=== PATIENT | female | born 1975 | race Caucasian/White ===

== ENCOUNTER → 2018-06-06 | Outpatient (CLI) | payer OTHER | LOC: M RAD 08:55 | DX: Z12.31 Encounter for screening mammogram for malignant neoplasm of breast (principal) | CPT/HCPCS: 77067 ==

== ENCOUNTER → 2019-02-13 | Outpatient (CLI) | payer OTHER ==
--- NOTE | 2019-02-13 14:59 | REP ---
DIGITAL DIAGNOSTIC UNILATERAL RIGHT BREAST MAMMOGRAPHY WITH CAD, 3D TOMOGRAPHY, AND FOCUSED RIGHT BREAST SONOGRAPHY: HISTORY: Upper outer quadrant lump times 1 month. 5 mm in size nontender. Comparison is made with prior mammography most recent of which is from June 06, 2018. June 17, 2016 and January 22, 2015 studies are also reviewed. MAMMOGRAPHIC FINDINGS: A skin marker is affixed to the skin in the right breast. Routine views of the right breast are augmented by magnified focal spot compression images and 3D tomographic images. There is a small area of spiculation visible on magnified spot radiographs in the upper outer quadrant. There are some adjacent punctate microcalcifications. There are microcalcifications regionally in the upper outer quadrant which appeared dispersed. These are essentially unchanged but the area of spiculation is new. Parenchyma is again seen to be heterogeneously dense in a pattern which may inhibit the sensitivity of mammography. No other mammographic abnormality of the right breast. SONOGRAPHIC FINDINGS: The right breast is scanned from 9-o'clock position to the 12-o'clock position through the upper outer quadrant. At 10-o'clock there is a 1.2 x 1.2 x 0.6 cm hypoechoic spiculated appearing mass with acoustic shadowing. This is taller than wide and is considered sonographically suspicious. This is felt to correspond with the area of spiculation seen mammographically. It is located 3.6 cm from the nipple. Heterogeneous fibroglandular background echotexture is seen. IMPRESSION: BIRADS 4: BI-RADS/ACR category 4 mammogram. Suspicious Abnormality - biopsy should be considered. BIRADS category 4 suspicious right breast findings. There is a suspicious area of spiculation in the upper outer quadrant mammographically. This corresponds to a 1.2 cm hypoechoic irregular mass sonographically at 10-o'clock position. Biopsy is recommended. Ultrasound-guided needle biopsy is recommended with marker clip placement and post marker clip placement mammography. This mammogram was interpreted with the aid of an FDA-approved computer-aided detection system. The patient states she had a clinical breast exam in January 2019. The patient letter being requested is M4 dense. This patient's estimated [facility] lifetime risk assessment for the breast cancer is 11.9 %. Electronically Signed by Scooter Troncoso MD 02/13/2019 04:22 P
== END ==
LOC: M RAD 12:27
PROVIDERS: ATTEND Family Medicine
DX: N63.11 Unspecified lump in the right breast, upper outer quadrant (principal)

== ENCOUNTER → 2019-04-26 | Outpatient (CLI) | payer OTHER ==
[~2019-04-26] MED LIST: IBUP200C33 PO; LORA-674 PO; MULTCAP PO
--- NOTE | 2019-04-26 23:24 | RADONC ---
RADIATION ONCOLOGY NEW PATIENT CONSULTATION DATE: 04/26/2019 CHART NUMBER: [id number] DIAGNOSIS: She has a diagnosis of right-sided breast cancer. STAGE: [id number] infiltrating ductal carcinoma, group stage I. The tumor was noted to be ER/MO positive, HER2/jo ann, not overly expressed. Oncotype DX score 11. REFERRING PHYSICIANS: Hoa Castillo and Jamel Alvarado. ECOG PERFORMANCE STATUS: 0 ICD-10 code: C50-50.411 HISTORY OF PRESENT ILLNESS: The patient is a 43-year-old female who apparently noticed for about a month a lump in the upper outer quadrant of the right breast. A mammogram was obtained, and a lesion was noted at the 10 o'clock and 9 o'clock position of the right breast, suspicious for malignancy. The mammography and sonography were performed on 02/13/2019. The lesion at the 10 o'clock position measured 1.2 x 1.2 x 0.6 cm. A biopsy was performed of the two areas on 03/27/2019 followed by a lumpectomy. The lumpectomy was performed on 03/27/2019. A grade 2 infiltrating ductal carcinoma was the final histology of the area at the 10 o'clock position with atypical cells seen also at the 9 o'clock position. The sentinel lymph node biopsy was performed on 03/27/2019 which was negative. The patient had clear margins, and Dr. Castillo saw the patient, who recommended an Oncotype DX evaluation. The Oncotype DX was obtained with a score of 11. The advantages of chemotherapy over tamoxifen or hormonal therapy were only 1%. She has an appointment to see Dr. Castillo again on May 09, 2019 to go over the results and to determine whether or not she will actually require chemotherapy. However, as stated, her indications are that she might not have a significant benefit from systemic chemotherapy. The patient healed well from her lumpectomy and sentinel lymph node biopsy and comes to us today to discuss adjuvant local regional radiotherapy. In summary, her lesion measured approximately 1.6 cm in greatest dimension and was ER/MO positive, HER2/jo ann negative. As stated, the Oncotype DX score was 11 which did not strongly indicate an advantage for chemotherapy over hormonal therapy alone. PAST MEDICAL HEALTH: She has had two cardiac ablations. PAST SURGICAL HEALTH: She has had an appendectomy and a tonsillectomy. ALLERGIES: No known drug allergies. MEDICATIONS: - ibuprofen 200 mg p.r.n. - loratadine 10 mg p.r.n. - multivitamins SOCIAL HISTORY: The patient is . 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 She enjoys her work and wishes to actively continue working. Smoking History: She has never smoked. Alcohol history. Occasional. GYNECOLOGIC HISTORY: She underwent menarche at the age of 11, with her first live at the age of 26. She did use oral contraceptives for approximately 20 years but stopped at the age of 35. She is still menstruating. FAMILY HISTORY: Family history of cancer. She has an aunt on her father's side with breast cancer and apparently she has had two breast primaries. She also has a paternal grandfather who had colon cancer. REVIEW OF SYSTEMS: Respiratory: She denies coughing, dryness, hemoptysis, dyspnea, hiccups, pleuritic chest pain or wheezing. Psychiatric: Denies delusions, hallucinations, mood swings such as depression or euphoria. Neurologic: Denies disorientation, dizziness, problems with gait, headaches, insomnia, memory loss, neuropathy, paralysis, seizure activity, sensory problems or strokes. Musculoskeletal: Denies arthritis, bone pain, joint pain, muscle weakness. Integumentary: Denies alopecia, blisters, bruising, dry skin, facial burning, difficulty with nail growth, photosensitivity, pruritus, rashes, or urticaria. Hematologic/Lymphatic: Denies easy bruising or lymphadenopathy. Genitourinary: Denies dysuria, frequency, genital masses, hematuria, incontinence, nocturia, renal stones, sexual dysfunction, urgency, changes in urine color, vaginal discharge or bleeding. She also denies vaginal spotting. Gastrointestinal: Denies changes in her bowel habits, constipation, diarrhea, heartburn, dyspepsia, hematemesis, hematochezia, hemorrhoids, melena, GI bleeding, nausea, pain, cramping, early satiety or vomiting. HEENT: Denies ear pain, epistaxis, esophagitis, hearing loss, mouth dryness, oral bleeding, otitis, sinusitis, sputum production, stomatitis, alteration of taste or tinnitus. Endocrine: Denies a history of diabetes, hot flashes, menstrual irregularities or thyroid disease. Constitutional: Denies a decrease in appetite, fatigue, fever, lethargy, malaise, night sweats, rigors or chills, or recent weight loss. Cardiovascular: Denies any current major issues, although she has had two cardiac ablations presumably for rhythmic abnormalities. Denies chest pain, dyspnea, edema, orthopnea. Breasts: She had a previous mammography as stated in the history and physical with her partial mastectomy on 03/27/2019 with sentinel lymph node biopsy. EXAMINATION FINDINGS: O2 saturation 99% on room air, diastolic 83, systolic 125, respirations 18, pulse 64, temperature 98.2, weight 164, height 67 inches. HEENT: Normocephalic. EOMs intact. PERRLA. Fundi benign. Lymphatics: No palpable peripheral lymphadenopathy is noted in the cervical, supraclavicular, axillary or inguinal lymph node chains. Lungs are clear to auscultation and to percussion. Heart: Regular without murmurs. Abdomen: Without evidence of hepatomegaly, masses, deep abdominal tenderness. Extremities: Without cyanosis, clubbing or edema. Neurologic: Examination grossly physiologic and nonfocal. Breasts: Bilaterally symmetric with healed incisions from her partial mastectomy and lymph node sampling. No abnormal masses are palpable on either breast. IMPRESSION: Stage I ([id number]) infiltrating ductal carcinoma involving the right upper outer quadrant. The tumor was ER/MO positive, HER2/jo ann oncogene not overly expressed. Oncotype DX results revealed that the patient had a very low benefit from chemotherapy with her score of 11. PLAN OF RADIOTHERAPY: The patient would be an appropriate candidate for adjuvant local regional radiotherapy to the right breast. We would recommend a dose of approximately 4860 cGy to the entire breast followed by a 1200 cGy boost to the lumpectomy scar site. Prior to treatment, delivery localization will be accomplished on our CT simulator and treatment portals defined by the use of multileaf collimators. A 3D conformal technique of be employed for treatment delivery. The indications, possible side effects, as well as alternatives have been explained to the patient. They include but are not necessarily limited to some fatigue, redness of the skin with possible desquamation, brittleness of the rib area, possible lung inflammation with an unlikely probability but possibility of radiation pneumonitis. The patient agrees to the above proposed treatment. Her consent was signed today, and she will return for simulation and will return to Dr. Castillo on May 09, 2019 to determine whether or not hormonal therapy is indicated versus chemotherapy. I am assuming the patient will be receiving hormonal therapy. Thank you for referring this very marlyn lady to us and allowing us the opportunity of participation in her overall management. Most Sincerely,
== END ==
LOC: M ONCR 10:22
PROVIDERS: ATTEND Radiology Radiation Oncology
DX: C50.911 Malignant neoplasm of unspecified site of right female breast (principal)

== ENCOUNTER → 2019-05-21 | Outpatient (RCR) | payer OTHER ==
[2019-05-03 11:07] LABS: HEMATOCRIT 39.4 % (36.0-47.0); HEMOGLOBIN 13.4 g/dl (12.0-15.5); LYMPH % 27.8 % (24.0-44.0); MEAN CORPUSCULAR HEMOGLOBIN 31.2 pg (27.0-33.0); MEAN CORPUSCULAR VOLUME 91.9 fl (80.0-96.0); NEUTROPHILS # 3.8 10^3/uL (1.8-7.7); NEUTROPHILS % 63.9 % (36.0-66.0); RED BLOOD COUNT 4.29 10^6/uL (4.00-5.40); WHITE BLOOD COUNT 5.9 10^3/uL (4.0-10.0)
--- NOTE | 2019-05-07 08:16 | RADONC ---
RADIATION ONCOLOGY SIMULATION NOTE DATE: 05/03/2019 CHART NUMBER: [id number] DIAGNOSIS: Right breast cancer. The patient comes today for simulation and was placed in the supine position. An immobilization device was constructed to immobilize the patient for daily accuracy during her treatments. The general outlines were wired on the breast, and the patient tolerated the immobilization device very well. 3 mm images were obtained through the chest area for contouring later and treatment planning. I was present during the entire simulation. The patient tolerated her procedure quite well with no significant untoward side effects and as soon as the images are contoured for both PTV (planned treatment volume) and for normal surrounding structures, a treatment plan will be generated. Again, the entire process was quite well tolerated, and the patient was sent home after completion.
--- NOTE | 2019-05-16 07:22 | RADONC ---
RADIATION ONCOLOGY PROGRESS NOTE DATE: 05/14/2019 CHART #: [id number] Ms. Escobar was taken to the linear accelerator today and underwent her first fraction of radiation to her right breast. Radiation was tolerated without difficulty or discomfort. REVIEW OF SYSTEMS: The patient's review of systems is noncontributory. Denies nausea, vomiting, fevers, chills, night sweats, diplopia, headaches, anxiety or depression, anorexia, weight loss, visual disturbances, chest pain, urinary or bowel difficulties, bone pain, or neurological problems. PHYSICAL EXAMINATION: The patient's skin is in excellent condition with no evidence of radiation change present. There is no moist or dry desquamation. The remainder of physical exam remains unchanged. ASSESSMENT: The patient tolerated her first fraction well and radiation will continue as scheduled.
[~2019-05-21] MED LIST changes: +SILV40CR EXT; +TAMO20TA8 PO
--- NOTE | 2019-05-22 07:24 | RADONC ---
RADIATION ONCOLOGY PROGRESS NOTE DATE: 05/21/2019 CHART #: [id number] Ms. Escobar is presently at a dose of 1080 cGy to her right breast and is tolerating treatments quite well at this point with no complaints related to her radiation therapy. She is having no skin discomfort or other problems. REVIEW OF SYSTEMS: The patient's review of systems is noncontributory. Denies nausea, vomiting, fevers, chills, night sweats, diplopia, headaches, anxiety or depression, anorexia, weight loss, visual disturbances, chest pain, urinary or bowel difficulties, bone pain, or neurological problems. PHYSICAL EXAMINATION: The patient's skin is in good condition with no evidence of radiation change present. There is no moist or dry desquamation. The remainder of her physical exam remains unchanged. Ms. Escobar is tolerating treatments quite well and radiation will continue as scheduled.
== END ==
LOC: M ONCR 05-03 10:34
PROVIDERS: ATTEND Radiology Radiation Oncology
DX: C50.411 Malignant neoplasm of upper-outer quadrant of right female breast (principal)

== ENCOUNTER → 2019-06-21 | Outpatient (RCR) | payer OTHER ==
--- NOTE | 2019-05-29 11:01 | RADONC ---
RADIATION ONCOLOGY PROGRESS NOTE DATE: 05/28/2019 CHART NUMBER: [id number] Ms. Escobar is presently at a dose of 1980 cGy to her right breast and is tolerating treatments quite well at this point with no complaints related to her radiation therapy. She is having no breast or bone pain. The patient's review of systems is noncontributory. She denies nausea, vomiting, fevers, chills, night sweats, diplopia, headaches, anxiety or depression, anorexia, weight loss, visual disturbances, chest pain, urinary or bowel difficulties, bone pain, or neurological problems. PHYSICAL EXAMINATION: The patient's skin is in good condition with no evidence of moist or dry desquamation. The remainder of her physical exam remains unchanged. Ms. Escobar is tolerating treatments quite well and radiation will continue as scheduled.
--- NOTE | 2019-06-04 13:52 | RADONC ---
RADIATION ONCOLOGY PROGRESS NOTE: DATE: 06/04/2019 CHART NUMBER: [id number] Ms. Escobar is presently at a dose of 2880 cGy to the right breast and is tolerating treatments quite well at this point with no significant difficulties related to her radiation therapy. She is having no breast or bone pain. REVIEW OF SYSTEMS: The patient's review of systems is noncontributory. She denies nausea, vomiting, fevers, chills, night sweats, diplopia, headaches, anxiety or depression, anorexia, weight loss, visual disturbances, chest pain, urinary or bowel difficulties, bone pain, or neurological problems. PHYSICAL EXAMINATION: The patient's skin is in good condition with no evidence of moist or dry desquamation. The remainder of her physical exam remains unchanged. Ms. Escobar is tolerating treatments quite well and radiation will continue as scheduled.
--- NOTE | 2019-06-12 08:39 | RADONC ---
RADIATION ONCOLOGY PROGRESS NOTE DATE: 06/11/2019 CHART NUMBER: [id number] This patient is currently undergoing radiotherapy for breast cancer, The patient has no complaints referable to her disease or to her treatments. She specifically denies any nausea, vomiting, coughing, sputum production or hemoptysis. Her energy level is such that she is able to maintain most of her day-to-day activities without any alteration of her lifestyle. She denies significant skin irritation, but she does have a mild itching erythema which is benefited by the use of Aquaphor. EXAMINATION FINDINGS: The skin within the irradiated volume shows a minimal very follicular erythema within the irradiated volume. There is no palpable peripheral lymphadenopathy noted in the cervical, supraclavicular or axillary lymph node chains. Lungs are clear. Heart regular. The remainder of the examination is unchanged. IMPRESSION: Tolerating therapy well. PLAN: Treatments to continue. MTDD
--- NOTE | 2019-06-19 06:28 | RADONC ---
RADIATION ONCOLOGY PROGRESS NOTE DATE: CHART #: [id number] Ms. Escobar is presently at a dose of 4680 cGy to her right breast and is tolerating treatments quite well at this point with no significant difficulties related to her radiation therapy other than some discomfort in the axillary region. REVIEW OF SYSTEMS: The patient's review of systems is positive for axillary discomfort but is otherwise noncontributory. Denies nausea, vomiting, fevers, chills, night sweats, diplopia, headaches, anxiety or depression, anorexia, weight loss, visual disturbances, chest pain, urinary or bowel difficulties, bone pain, or neurological problems. PHYSICAL EXAMINATION: The patient's skin is generally in good condition, although there is a small area of dry desquamation in the axillary region. There is also tanning and erythema present. The remainder of her physical exam remains unchanged. Ms. Escobar is tolerating treatments quite well and radiation will continue as scheduled. I did send in a prescription for Silvadene to her pharmacy.
== END ==
LOC: M ONCR 05-22 12:46
PROVIDERS: ATTEND Radiology Radiation Oncology
DX: C50.411 Malignant neoplasm of upper-outer quadrant of right female breast (principal)

== ENCOUNTER 2019-06-28 12:45 | Outpatient (RCR) | payer OTHER ==
--- NOTE | 2019-06-25 14:21 | RADONC ---
RADIATION ONCOLOGY FOLLOWUP NOTE: DATE: 06/25/2019 CHART NUMBER: [id number] Mrs. Escobar with a diagnosis of the right breast is currently receiving local regional adjuvant radiotherapy and she has almost completed her complete course of radiotherapy with only three more treatments to go. She has accomplished a dose of 4860 cGy to the entire breast and is currently receiving a boost dose to the lumpectomy scar site. She has no specific complaints other than skin toxicity related to her radiotherapy. REVIEW OF SYSTEMS: She denies any nausea, vomiting, coughing, sputum production or hemoptysis. Her energy level is somewhat diminished but she is still able to maintain most day-to-day activities without any alteration of her lifestyle. Skin irritation is bothersome to her. She was given a prescription for some Silvadene cream, however she felt that preparation cause her skin to even become more erythematous, therefore she discontinued it. She now only puts Aquaphor which helps ameliorate some of her discomfort. Otherwise, she denies any significant areas of desquamation and she certainly says that the pain is manageable. EXAMINATION FINDINGS: The skin within the irradiated volume shows a brisk erythematous blush without significant focal desquamation. There is no palpable peripheral lymphadenopathy. Lungs are clear. Heart: Regular without murmurs. Abdomen: Without evidence of hepatomegaly, masses, deep abdominal tenderness. Extremities: Without cyanosis, clubbing or edema. Neurologic: Examination unchanged. The remainder of the physical examination is unchanged. IMPRESSION: Tolerating therapy well. PLAN: Treatment is to continue. MTDD
--- NOTE | 2019-07-02 13:48 | RADONC ---
RADIATION ONCOLOGY TREATMENT SUMMARY DATE: 07/02/2019 CHART NUMBER: [id number] DIAGNOSIS: Right breast cancer. STAGE: IA, [id number], ER positive, LA positive, HER2 negative, Oncotype DX score 11. ECOG PERFORMANCE STATUS: 0 TREATMENT SUMMARY: Ms. Escobar is a very pleasant 44-year-old white female with the diagnosis of a stage IA, [id number] infiltrating ductal carcinoma of the right breast who presented to us status post lumpectomy and sentinel lymph node biopsy for consideration of postoperative radiation therapy for conservative breast management. We treated the patient to her right breast for a total dose of 4860 cGy delivered in 27 fractions of 180 cGy each over 36 elapsed days from 05/14/2019 through 06/19/2019. The patient's right breast was treated on a linear accelerator utilizing a 3D conformal technique with medial and lateral tangential mendez and a 6 MV photon beam. Following completion of 4860 cGy to the entire right breast, the primary site was boosted for an additional 1200 cGy delivered in six fractions of 200 cGy each over seven elapsed days from 06/21/2019 through 06/28/2019. The patient's primary site boost was treated on a linear accelerator utilizing a 16 MeV electron beam prescribed to the 90% isodose line via an en face technique. This brought the primary site to a total dose 6060 cGy delivered in 33 fractions over 43 elapsed days from 05/14/2019 through 06/28/2019. Ms. Escobar tolerated her treatments quite well and was able complete therapy as prescribed. I have scheduled the patient to see me again in 1 month for further followup. I have also scheduled the patient to see me again in 1 month for further followup. She will also continue to be seen by her other physicians as well. cc: MD Sherman Arias MD
== END 2019-07-21 ==
LOC: M ONCR 12:45
PROVIDERS: ATTEND Radiology Radiation Oncology
DX: C50.411 Malignant neoplasm of upper-outer quadrant of right female breast (principal)

== ENCOUNTER → 2019-07-24 | Outpatient (CLI) | payer OTHER ==
[2019-07-24 12:39] LABS: BASO % 0.7 % (0.0-1.0); EOS # 0.2 10^3/uL (0.0-0.5); EOS % 3.9 % (0.0-3.0); HEMATOCRIT 38.9 % (36.0-47.0); HEMOGLOBIN 12.8 g/dl (12.0-15.5); LYMPH # 0.8 10^3/uL (1.5-5.0); LYMPH % 17.4 % (24.0-44.0); MEAN CORPUSCULAR HEMOGLOBIN 30.6 pg (27.0-33.0); MEAN CORPUSCULAR HGB CONC 32.9 g/dl (32.0-36.5); MEAN CORPUSCULAR VOLUME 93.1 fl (80.0-96.0); MONO # 0.4 10^3/uL (0.0-0.8); MONO % 8.7 % (0.0-5.0); NEUTROPHILS # 3.2 10^3/uL (1.5-8.5); NEUTROPHILS % 69.1 % (36.0-66.0); PLATELET COUNT, AUTOMATED 189 10^3/uL (150-450); RED BLOOD COUNT 4.18 10^6/uL (4.00-5.40); WHITE BLOOD COUNT 4.6 10^3/uL (4.0-10.0)
[2019-07-24 12:59] LABS: ALBUMIN 3.8 GM/DL (3.2-5.2); ALT/SGPT 26 U/L (12-78); BILIRUBIN,TOTAL 0.7 MG/DL (0.2-1.0); BLOOD UREA NITROGEN 13 MG/DL (7-18); CALCIUM LEVEL 9.5 MG/DL (8.5-10.1); CARBON DIOXIDE LEVEL 27 MEQ/L (21-32); CHLORIDE LEVEL 108 MEQ/L (98-107); CHOLESTEROL LEVEL 108 MG/DL (<200); CHOLESTEROL RISK RATIO 2.037 (<5); CREATININE FOR GFR 0.73 MG/DL (0.55-1.30); FREE T4 1.02 NG/DL (0.76-1.46); GLOMERULAR FILTRATION RATE > 60.0 (>58); GLUCOSE, FASTING 84 MG/DL (70-100); HDL CHOLESTEROL 53 MG/DL (>40); LDL CHOLESTEROL 43 MG/DL (<100); NON-HDL-C 55 MG/DL; SODIUM LEVEL 141 MEQ/L (136-145); TOTAL PROTEIN 7.1 GM/DL (6.4-8.2); TRIGLYCERIDES LEVEL 61 MG/DL (<150)
== END ==
LOC: M LRY 09:18
PROVIDERS: ATTEND Physician Assistant
DX: Z13.220 Encounter for screening for lipoid disorders (principal); Z13.0 Encounter for screening for diseases of the blood and blood-forming organs and certain disorders involving the immune mechanism

== ENCOUNTER → 2019-07-25 | Outpatient (CLI) | payer OTHER ==
--- NOTE | 2019-07-25 11:47 | RADONC ---
RADIATION ONCOLOGY FOLLOWUP NOTE DATE OF SERVICE: 07/25/2019 Ms. Escobar is a 44-year-old female who carries the diagnosis of infiltrating ductal carcinoma of the right breast stage IA, [id number], ER/CA positive, HER2 negative. She completed radiation therapy on 07/02/2019. INTERVAL HISTORY She started tamoxifen, and her last period was 06/26/2019. She is experiencing hot flashes and has an appointment with the manager zone next week. SYSTEMIC REVIEW: She denies any headache, dizziness. No respiratory symptoms. No cardiovascular symptoms. No GI or symptoms. She denies any bone pain. ECOG performance status: 0. PHYSICAL EXAMINATION She is well developed, nourished.Not in apparent distress There is no palpable lymphadenopathy in the neck, axilla bilaterally. There is a minimal residual erythema in the right breast. There was tenderness over the lumpectomy scars in the right breast and also radiating laterally and then posteriorly. Abdominal examination: Is negative. There is no bony tenderness over the spine and the rib cages. There is no swelling or cyanosis of the extremities. ASSESMENT and RECOMMENDATION Ms. Escobar is a 44-year-old female who carries the diagnosis of infiltrating ductal carcinoma of the right breast stage IA, [id number], ER/CA positive, HER2 negative. She completed radiation therapy on 07/02/2019. She is doing very well without any complaints. I have discussed gynecology could followup since she is on tamoxifen, and I advised her to massage the lumpectomy scar using vitamin E cream. She was advised continuous follow up care with physicians involved and she was advised to return here in 3 months for the followup or sooner if it is needed. FIFI
== END ==
LOC: M ONCR 08:59
PROVIDERS: ATTEND Radiology Radiation Oncology
DX: C50.411 Malignant neoplasm of upper-outer quadrant of right female breast (principal)

== ENCOUNTER 2019-08-29 09:54 | Day surgery (SDC) | payer OTHER ==
[~2019-08-29] VITALS: Ht 170.2 cm; Wt 67.2 kg
[~2019-08-29 09:54] MED LIST changes: +NS 1,000 ML IV ONE
[2019-08-29] MEDS ORDERED: propofoL 200 MG/20 ML VIAL As Ordered ONE (11:21)
[2019-08-29] MEDS ORDERED: LIDOCAINE 2% INJ 100 MG/5 ML SDV (FOR ANES.) As Ordered ONE (11:21)
--- NOTE | 2019-08-29 11:48 | ROOR ---
Patient Name: Christine Escobar Procedure Date: 08/29/2019 11:12 AM Date of : 1975 Age: 44 Room: [facility] Gender: Female Note Status: Finalized Procedure: Colonoscopy Indications: Screening for colorectal malignant neoplasm Providers: Wilbur Santa DO Referring MD: Yoon CROWE DO Requesting Provider: Medicines: Propofol per Anesthesia Complications: No immediate complications. Procedure: Pre-Anesthesia Assessment: - Prior to the procedure, a History and Physical was performed, and patient medications and allergies were reviewed. The patient is competent. The risks and benefits of the procedure and the sedation options and risks were discussed with the patient. All questions were answered and informed consent was obtained. Patient identification and proposed procedure were verified by the physician, the nurse, the anesthesiologist and the er medical technician in the endoscopy suite. Mental Status Examination: alert and oriented. Airway Examination: normal oropharyngeal airway and neck mobility. Respiratory Examination: clear to auscultation. CV Examination: normal. Prophylactic Antibiotics: The patient does not require prophylactic antibiotics. Prior Anticoagulants: The patient has taken no previous anticoagulant or antiplatelet agents. ASA Grade Assessment: II - A patient with mild systemic disease. After reviewing the risks and benefits, the patient was deemed in satisfactory condition to undergo the procedure. The anesthesia plan was to use monitored anesthesia care (MAC). Immediately prior to administration of medications, the patient was re-assessed for adequacy to receive sedatives. The heart rate, respiratory rate, oxygen saturations, blood pressure, adequacy of pulmonary ventilation, and response to care were monitored throughout the procedure. The physical status of the patient was re-assessed after the procedure. The Colonoscope was introduced through the anus and advanced to the cecum, identified by appendiceal orifice and ileocecal valve. The colonoscopy was technically difficult and complex due to a tortuous colon. Successful completion of the procedure was aided by changing the patient to a supine position. The patient tolerated the procedure well. Findings: The colon (entire examined portion) was significantly tortuous. Non-bleeding internal hemorrhoids were found during retroflexion. The hemorrhoids were mild and Grade I (internal hemorrhoids that do not prolapse). The exam was otherwise without abnormality on direct and retroflexion views. Impression: - Tortuous colon. - Non-bleeding internal hemorrhoids. - The examination was otherwise normal on direct and retroflexion views. - No specimens collected. Recommendation: - Patient has a contact number available for emergencies. The signs and symptoms of potential delayed complications were discussed with the patient. Return to normal activities tomorrow. Written discharge instructions were provided to the patient. - Repeat colonoscopy in 5-10 years for screening purposes. - Return to my office PRN. Wilbur Santa DO 08/29/2019 11:48:19 AM Electronically signed by Wilbur Santa DO Number of Addenda: 0 Note Initiated On: 08/29/2019 11:12 AM Estimated Blood Loss: Estimated blood loss: none.
[2019-08-29 12:05] VITALS: BP 148/62
== END 2019-08-29 12:06 | disposition home or self-care (01) ==
LOC: M OPP 09:54
PROVIDERS: ATTEND Surgery
DX: Z12.11 Encounter for screening for malignant neoplasm of colon (principal); Z80.0 Family history of malignant neoplasm of digestive organs; K64.0 First degree hemorrhoids; Q43.8 Other specified congenital malformations of intestine; Z85.3 Personal history of malignant neoplasm of breast; Z79.899 Other long term (current) drug therapy; Z88.1 Allergy status to other antibiotic agents

== ENCOUNTER → 2019-10-24 | Outpatient (CLI) | payer OTHER ==
[~2019-10-24] MED LIST changes: -NS 1,000 ML IV ONE
--- NOTE | 2019-10-30 10:39 | RADONC ---
RADIATION ONCOLOGY FOLLOWUP NOTE DATE: 10/24/2019 CHART NUMBER: [id number] DIAGNOSIS: Right-sided breast cancer. STAGE: IA, T1c, N0, M0, grade 1, ER positive, FL positive, HER2 equivocal, Oncotype DX score 11. ECOG PERFORMANCE STATUS: 0. FOLLOWUP NOTE: Ms. 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 The patient presents today reporting that she is doing quite well with no complaints at this time related to her radiation therapy or disease. She has got no breast or bone pain. REVIEW OF SYSTEMS: The patient's review of systems is noncontributory. She denies nausea, vomiting, fevers, chills, night sweats, diplopia, headaches, anxiety or depression, anorexia, weight loss, visual disturbances, chest pain, urinary or bowel difficulties, bone pain, or neurological problems. PHYSICAL EXAMINATION: The patient is a well-developed, well-nourished, female in no acute distress. HEENT exam is normocephalic, atraumatic. Extraocular movements are intact. There is no palpable cervical, supraclavicular, infraclavicular, axillary, or inguinal lymphadenopathy present. Lungs are clear to auscultation and percussion. Heart has a regular rate and rhythm. Abdomen is benign with no hepatosplenomegaly, masses, or tenderness. Breast examination reveals no masses or discharge bilaterally. Skeletal examination reveals no tenderness to pressure or percussion of the bony skeleton. Extremities reveal no clubbing, cyanosis, or edema. Neurologic exam is grossly intact, as is the remainder of the physical examination. ASSESSMENT: The patient is clinically RODO at this time. She is being followed and managed closely by her surgeon as well as her medical oncologist and light of this I am discharging her from my followup except on an as needed basis. cc: MD Matilde Arias MD
== END ==
LOC: M ONCR 10:14
PROVIDERS: ATTEND Radiology Radiation Oncology
DX: C50.411 Malignant neoplasm of upper-outer quadrant of right female breast (principal)

== ENCOUNTER → 2020-10-30 | Outpatient (CLI) | payer OTHER ==
[~2020-10-30] MED LIST changes: +B-10TAB2 PO; +MULT-90 PO
[2020-10-30 06:48] LABS: BASO # 0.1 10^3/uL (0.0-0.2); BASO % 1.1 % (0.0-1.0); EOS # 0.3 10^3/uL (0.0-0.5); EOS % 5.8 % (0.0-3.0); HEMATOCRIT 37.9 % (36.0-47.0); HEMOGLOBIN 12.6 g/dl (12.0-15.5); LYMPH # 1.2 10^3/uL (1.5-5.0); MEAN CORPUSCULAR HEMOGLOBIN 30.6 pg (27.0-33.0); MEAN CORPUSCULAR HGB CONC 33.2 g/dl (32.0-36.5); MONO # 0.5 10^3/uL (0.0-0.8); MONO % 10.2 % (2.0-8.0); NEUTROPHILS # 2.7 10^3/uL (1.5-8.5); NEUTROPHILS % 56.7 % (36.0-66.0); PLATELET COUNT, AUTOMATED 156 10^3/uL (150-450); RED BLOOD COUNT 4.12 10^6/uL (4.00-5.40); WHITE BLOOD COUNT 4.7 10^3/uL (4.0-10.0)
[2020-10-30 07:15] LABS: ALBUMIN 3.8 GM/DL (3.2-5.2); ALT/SGPT 24 U/L (12-78); BILIRUBIN,TOTAL 0.6 MG/DL (0.2-1.0); BLOOD UREA NITROGEN 17 MG/DL (7-18); CARBON DIOXIDE LEVEL 32 MEQ/L (21-32); CHLORIDE LEVEL 107 MEQ/L (98-107); CHOLESTEROL LEVEL 131 MG/DL (<200); CHOLESTEROL RISK RATIO 1.898 (<5); CREATININE FOR GFR 0.86 MG/DL (0.55-1.30); FREE T4 0.86 NG/DL (0.76-1.46); GLOMERULAR FILTRATION RATE > 60.0 (>58); GLUCOSE, FASTING 92 MG/DL (70-100); HDL CHOLESTEROL 69 MG/DL (>40); LDL CHOLESTEROL 48 MG/DL (<100); NON-HDL-C 62 MG/DL; POTASSIUM SERUM 4.4 MEQ/L (3.5-5.1); SODIUM LEVEL 140 MEQ/L (136-145); TOTAL PROTEIN 6.8 GM/DL (6.4-8.2); TRIGLYCERIDES LEVEL 72 MG/DL (<150)
--- NOTE | 2020-10-30 08:20 | REP ---
INDICATION: PAIN IN RIGHT ELBOW- LABS FIRST COMPARISON: None. TECHNIQUE: AP and lateral views of the right elbow. FINDINGS: No acute fracture or dislocation is appreciated. Joint spaces and surrounding soft tissues appear normal. Lateral view demonstrates normal positioning to the anterior and posterior fat pads without evidence for effusion/hemarthrosis. No subcutaneous emphysema or foreign body identified. IMPRESSION: Normal age-appropriate right elbow radiographs. <Electronically signed by Toby Hurtado > 10/30/20 0845
== END ==
LOC: M LAB 06:17
PROVIDERS: ATTEND Physician Assistant
DX: M25.521 Pain in right elbow (principal)

== ENCOUNTER → 2021-05-05 | Outpatient (CLI) | payer OTHER ==
[2021-05-05 13:34] LABS: BASO % 0.8 % (0.0-1.0); EOS # 0.2 10^3/uL (0.0-0.5); EOS % 2.8 % (0.0-3.0); HEMATOCRIT 35.5 % (36.0-47.0); HEMOGLOBIN 11.7 g/dl (12.0-15.5); LYMPH # 1.5 10^3/uL (1.5-5.0); LYMPH % 27.2 % (24.0-44.0); MEAN CORPUSCULAR VOLUME 94.2 fl (80.0-96.0); MONO # 0.4 10^3/uL (0.0-0.8); MONO % 7.1 % (2.0-8.0); NEUTROPHILS # 3.3 10^3/uL (1.5-8.5); NEUTROPHILS % 61.9 % (36.0-66.0); PLATELET COUNT, AUTOMATED 199 10^3/uL (150-450); RED BLOOD COUNT 3.77 10^6/uL (4.00-5.40); WHITE BLOOD COUNT 5.3 10^3/uL (4.0-10.0)
[2021-05-05 15:37] LABS: ALBUMIN 3.5 GM/DL (3.2-5.2); ALT/SGPT 40 U/L (12-78); BILIRUBIN,TOTAL 0.5 MG/DL (0.2-1.0); BLOOD UREA NITROGEN 11 MG/DL (7-18); CARBON DIOXIDE LEVEL 27 MEQ/L (21-32); CHLORIDE LEVEL 113 MEQ/L (98-107); CREATININE FOR GFR 0.78 MG/DL (0.55-1.30); FREE T4 0.89 NG/DL (0.76-1.46); GLOMERULAR FILTRATION RATE > 60.0 (>58); GLUCOSE, FASTING 93 MG/DL (70-100); IRON (FE) 107 UG/DL (50-170); PERCENT SATURATION 24.7 % (13.2-45.0); POTASSIUM SERUM 4.3 MEQ/L (3.5-5.1); SODIUM LEVEL 145 MEQ/L (136-145); TOTAL IRON BINDING CAPACITY 433 UG/DL (250-450); TOTAL PROTEIN 6.3 GM/DL (6.4-8.2)
[2021-05-05 15:50] LABS: TOTAL 25(OH) VITAMIN D 50.3 NG/ML (30.0-100.0)
== END ==
LOC: M LAB 12:45
PROVIDERS: ATTEND Physician Assistant
DX: Z00.00 Encounter for general adult medical examination without abnormal findings (principal); R53.83 Other fatigue

== ENCOUNTER → 2022-11-16 | Outpatient (CLI) | payer OTHER ==
[~2022-11-16] MED LIST changes: +CELE10TA PO
== END ==
LOC: M PLAIMG 08:56
PROVIDERS: ATTEND Family Medicine
DX: M54.32 Sciatica, left side (principal)

== ENCOUNTER → 2022-12-30 | Outpatient (CLI) | payer OTHER | LOC: M WHC 13:34 | PROVIDERS: ATTEND Family Medicine | DX: E55.9 Vitamin D deficiency, unspecified (principal); M89.9 Disorder of bone, unspecified ==

== ENCOUNTER → 2022-12-30 | Outpatient (CLI) | payer OTHER | LOC: M PLAIMG 13:36 | PROVIDERS: ATTEND Family Medicine | DX: M54.59 Other low back pain (principal) ==

== ENCOUNTER → 2023-10-12 | Outpatient (CLI) | payer OTHER ==
[~2023-10-12] MED LIST changes: +CALC-190 PO; +LORA-1041 PO; -LORA-674 PO
[2023-10-12 11:21] LABS: BASO # 0.1 10^3/uL (0.0-0.2); EOS # 0.4 10^3/uL (0.0-0.5); EOS % 7.8 % (0.0-3.0); HEMATOCRIT 38.9 % (36.0-47.0); HEMOGLOBIN 12.8 g/dl (12.0-15.5); LYMPH # 1.5 10^3/uL (1.5-5.0); LYMPH % 30.2 % (24.0-44.0); MEAN CORPUSCULAR HEMOGLOBIN 30.4 pg (27.0-33.0); MEAN CORPUSCULAR HGB CONC 32.9 g/dl (32.0-36.5); MEAN CORPUSCULAR VOLUME 92.4 fl (80.0-96.0); MONO # 0.4 10^3/uL (0.0-0.8); MONO % 8.4 % (2.0-8.0); NEUTROPHILS # 2.5 10^3/uL (1.5-8.5); NEUTROPHILS % 52.4 % (36.0-66.0); PLATELET COUNT, AUTOMATED 170 10^3/uL (150-450); RED BLOOD COUNT 4.21 10^6/uL (4.00-5.40); WHITE BLOOD COUNT 4.9 10^3/uL (4.0-10.0)
[2023-10-12 11:54] LABS: ALBUMIN 3.6 G/DL (3.2-5.2); ALKALINE PHOSPHATASE 53 U/L (46-116); ALT/SGPT 22 U/L (7.0-40); AST/SGOT 24 U/L (<34); BILIRUBIN,TOTAL 0.5 MG/DL (0.3-1.2); BLOOD UREA NITROGEN 16 MG/DL (9-23); CALCIUM LEVEL 8.8 MG/DL (8.5-10.1); CARBON DIOXIDE LEVEL 28 MMOL/L (20-31); CHLORIDE LEVEL 111 MMOL/L (98-107); CHOLESTEROL LEVEL 137 MG/DL (<200); CHOLESTEROL RISK RATIO 1.91 (<5); CREATININE FOR GFR 0.77 MG/DL (0.55-1.30); GLOMERULAR FILTRATION RATE > 60.0 (>58); GLUCOSE, FASTING 84 MG/DL (60-100); HDL CHOLESTEROL 71.7 MG/DL (>40); LDL CHOLESTEROL 54.1 MG/DL (<100); NON-HDL-C 65.3 MG/DL; SODIUM LEVEL 143 MMOL/L (136-145); TOTAL PROTEIN 6.1 G/DL (5.7-8.2); TRIGLYCERIDES LEVEL 56 MG/DL (<150)
[2023-10-12 11:56] LABS: FREE T4 0.94 NG/DL (0.89-1.76); THYROID STIMULATING HORMONE 2.674 uIU/ML (0.55-4.78)
== END ==
LOC: M PLALAB 07:05
PROVIDERS: ATTEND Family Medicine
DX: Z13.29 Encounter for screening for other suspected endocrine disorder (principal)

== ENCOUNTER → 2023-11-15 | Outpatient (CLI) | payer OTHER ==
[2023-11-15 15:49] LABS: HEPATITIS B SURFACE ANTIBODY POSITIVE (POSITIVE)
[2023-11-15 16:21] LABS: HEPATITIS B CORE ANTIBODY IGM NEGATIVE (NEGATIVE)
== END ==
LOC: M PLALAB 13:06
PROVIDERS: ATTEND Family Medicine
DX: Z01.84 Encounter for antibody response examination (principal)

== ENCOUNTER → 2025-05-08 | Outpatient (REF) | payer OTHER | LOC: M SFHCDERM 08:05 | PROVIDERS: ATTEND Nurse Practitioner Family | DX: D49.2 Neoplasm of unspecified behavior of bone, soft tissue, and skin (principal) ==